=== PATIENT | male | born 1950 ===

== ENCOUNTER 2021-07-20 12:22 | Outpatient (CLI) | payer MEDICARE, SELFPAY ==
[2021-07-23 12:24] LABS: PSA, Ultrasensitive 0.14 ng/mL (<= 6.5)
== END 2021-07-20 12:23 | disposition home or self-care (01) ==
LOC: LBO 12:40
PROVIDERS: PCP Physician Assistant Surgical; Visit Provider Radiology Radiation Oncology
DX: C61 Malignant neoplasm of prostate (principal)
CPT/HCPCS: 36415; 84153